=== PATIENT | male | born 1945 | race Caucasian/White ===

== ENCOUNTER 2018-11-02 06:04 | Day surgery (SDC) | payer MEDICARE, OTHER ==
[2018-11-01 14:07] VITALS: BMI 32.8
[2018-11-02 07:12] LABS: Hemoglobin 14.9 g/dL (14.0-18.0)
[2018-11-02 07:31] LABS: Anion Gap 12 mmol/L (10-20); BUN (Urea Nitrogen) 17 mg/dL (8.4-25.7); Calc. Creatinine Clearance 73 mL/min (70-130); Calcium 9.3 mg/dL (7.8-10.44); Carbon Dioxide 26 mmol/L (23-31); Chloride 104 mmol/L (98-107); Estimated GFR-MDRD 52; Glucose 138 mg/dL (83-110); Potassium 3.8 mmol/L (3.5-5.1); Sodium 138 mmol/L (136-145)
[2018-11-02] MEDS ORDERED: EPINEPHrine 1 MG/ML AMP ONE (07:40)
[2018-11-02] MEDS ORDERED: Fentanyl 100 MCG/2 ML VIAL ONE ×2 (08:08→09:03)
[2018-11-02] MEDS ORDERED: HYDROcodone/Acetaminophen 5/325 mg Tablet ONE ×2 (10:11→10:53)
--- NOTE | 2018-11-02 11:29 | OP ---
DATE OF PROCEDURE: 11/02/2018 PREOPERATIVE DIAGNOSES: 1. Laryngeal mass. 2. Dysphagia. POSTOPERATIVE DIAGNOSES: 1. Laryngeal mass. 2. Dysphagia. PROCEDURES PERFORMED: Microsuspension direct laryngoscopy with biopsy. ESTIMATED BLOOD LOSS: Less than 5 mL. COMPLICATIONS: None. ANESTHESIA: GETA. DESCRIPTION OF PROCEDURE: The patient was taken to the operating room. General endotracheal anesthesia using the GlideScope was obtained with a 6.5 endotracheal tube. Tube was secured in the left lower lip. The patient was then turned 90 degrees, and a shoulder roll was placed. The operating microscope with a 400-mm lens was used along with the Dedo laryngoscope to visualize oral cavity, oropharynx, which were noted to be clear. The laryngeal structures were intact. There was a mass arising from the right posterior pharyngeal wall extending just barely to the right lateral piriform sinus wall. The mass was approximately 2-cm to 2.5-cm in diameter. It appeared very fibrous. Multiple biopsies were taken of this area. The patient tolerated the procedure well. Job ID: [id number]
[2018-11-02] MEDS ORDERED: Glycopyrrolate 0.2 MG/ML 5 ML SYRINGE ONE (16:15)
[2018-11-02] MEDS ORDERED: Succinylcholine Chloride 20 MG/ML 10 ml SYRINGE FS ONE (16:15)
[2018-11-02] MEDS ORDERED: PROPOFOL 200 MG/20 ML VIAL ONE (16:15)
[2018-11-02] MEDS ORDERED: Dexamethasone 20 MG/5 ML VIAL ONE (16:15)
[2018-11-02] MEDS ORDERED: EPINEPHrine 1 MG/10 ML Abboject SYRINGE ONE (16:15)
[2018-11-02] MEDS ORDERED: Ondansetron PF 4 MG/2 ML Vial ONE (16:15)
[2018-11-02] MEDS ORDERED: Rocuronium Bromide 10 MG/ML (10ML VIAL) ONE (16:15)
[2018-11-02] MEDS ORDERED: Lidocaine 1% PF 5 ML VIAL ONE (16:15)
== END 2018-11-02 11:30 | disposition home or self-care (01) ==
LOC: SDC 06:04
PROVIDERS: ATTEND Otolaryngology Plastic Surgery within the Head & Neck
PROC: 0CBS8ZX Excision of Larynx, Via Natural or Artificial Opening Endoscopic, Diagnostic (ICD-10-PCS; principal; 2018-11-02)
DX: C12 Malignant neoplasm of pyriform sinus (principal); J34.2 Deviated nasal septum; I10 Essential (primary) hypertension; R00.1 Bradycardia, unspecified; Z87.891 Personal history of nicotine dependence; Z88.7 Allergy status to serum and vaccine
CPT/HCPCS: 36415; 80048; 85014; 85018; 88305; 88341; 88342; 93005; 93010; J0171; J1100; J2001; J2405; J2704; J3010